=== PATIENT | female | born 1950 ===

== ENCOUNTER 2018-07-15 10:24 | Emergency (ER) | payer MEDICAID ==
[2018-07-15 10:29] VITALS: BP 151/75; PULSE 104; TEMP 97
[2018-07-15 10:30] VITALS: BMI 23.2
[2018-07-15 10:45] VITALS: O2SAT 98
[2018-07-15] MEDS ORDERED: Albuterol-Ipratrop 3 mg / 0.5 (3 ml) UD INH STA ×3 (11:05→14:29)
--- NOTE | 2018-07-15 11:06 | ED PDOC ---
HPI: SOB/CHF/COPD Time Seen by Provider: 07/15/18 10:46 Chief Complaint (Nursing): Shortness Of Breath Chief Complaint (Provider): Shortness Of Breath History Per: Family (daughter) History/Exam Limitations: language barrier (azeri) Onset/Duration Of Symptoms: Days (x3) Current Symptoms Are (Timing): Still Present Additional Complaint(s): 68 year old female with medical history of asthma, arrives to the emergency department with daughter at bedside, for an evaluation of shortness of breath associated with cough and wheezing for the past 3 days. She denies chest pain, fever, or chills. Patient has been using her inhaler pumps and nebulizers at home with no alleviation. Recently, patient changed primary doctors (previous one retired) and was worked up for asthma with labs, however, did not receive nebulizer treatment at the time due to broken machine. Past Medical History Reviewed: Historical Data, Nursing Documentation, Vital Signs Vital Signs: Last Vital Signs Temp 97 F L 07/15/18 10:28 Pulse 104 H 07/15/18 10:28 Resp BP 151/75 H 07/15/18 10:28 Pulse Ox 98 07/15/18 10:43 Primary Care Provider: FAMILY PROVIDER,NO - Medical History PMH: Arthritis, Asthma, HTN - Family History Family History: States: Unknown Family Hx - Social History Current smoker - smoking cessation education provided: No - Immunization History Hx Tetanus Toxoid Vaccination: No - Home Medications Home Medications: Ambulatory Orders Medication Instructions Recorded Prednisone 50 mg PO DAILY #4 tab 07/15/18 - Allergies Allergies/Adverse Reactions: Allergies Allergy/AdvReac Type Severity Reaction Status Date / Time No Known Allergies Allergy Verified 07/15/18 10:42 Review of Systems ROS Statement: Except As Marked, All Systems Reviewed And Found Negative Constitutional: Negative for: Fever, Chills Cardiovascular: Negative for: Chest Pain Respiratory: Positive for: Cough, Shortness of Breath, Wheezing Physical Exam - Reviewed Nursing Documentation Reviewed: Yes Vital Signs Reviewed: Yes - Physical Exam Appears: Positive for: Non-toxic, No Acute Distress Head Exam: Positive for: ATRAUMATIC, NORMAL INSPECTION, NORMOCEPHALIC Skin: Positive for: Normal Color Eye Exam: Positive for: Normal appearance, EOMI, PERRL ENT: Positive for: Normal ENT Inspection. Negative for: Pharyngeal Erythema Neck: Positive for: Normal Cardiovascular/Chest: Positive for: Regular Rate, Rhythm Respiratory: Positive for: Wheezing (expiratory bilaterally). Negative for: Respiratory Distress Extremity: Positive for: Normal ROM (upper/lower). Negative for: Pedal Edema Neurological/Psych: Positive for: Awake, Alert, Normal Tone, Oriented, Other (speaking full sentences with clear speech) - Laboratory Results Result Diagrams: 07/15/18 12:05 07/15/18 12:05 - ECG O2 Sat by Pulse Oximetry: 98 (RA) Pulse Ox Interpretation: Normal Medical Decision Making Medical Decision Making: Time: 1102 Initial Plan: * EKG * Labs * CXR * Duoneb INH * Solu-medrol IVP * Blood culture 14:00 Pt feels better, + wheezing, additional nebulizer ordered. 15:30 Wheezing resolved. Scribe Attestation: Documented by Lacy Wheatley, acting as a scribe for Zahra Seals MD. Provider Scribe Attestation: All medical record entries made by the Scribe were at my direction and personally dictated by me. I have reviewed the chart and agree that the record accurately reflects my personal performance of the history, physical exam, medical decision making, and the department course for this patient. I have also personally directed, reviewed, and agree with the discharge instructions and disposition. Disposition - Clinical Impression Clinical Impression: Asthma exacerbation - Disposition Referrals: Jr Mcdonald MD [Family Provider] - Disposition: Routine/Home Disposition Time: 15:37 Condition: IMPROVED Prescriptions: Prednisone 50 mg PO DAILY #4 tab Instructions: Asthma in Adults Forms: [facility] (Icelandic) Print Language: ITALIAN
[2018-07-15] MEDS ORDERED: Albuterol-Ipratrop 3 mg / 0.5 (3 ml) UD ONE (11:40)
[2018-07-15 12:12] LABS: BASO # 0.1 K/uL (0.0-0.2); BASO % 1.2 % (0.0-2.0); EOS # 0.6 K/uL (0.0-0.7); LYMPH # 1.1 K/uL (1.0-4.3); LYMPH % 14.6 % (20.0-40.0); MEAN CELL VOLUME 90.1 fl (81.0-99.0); MEAN CORPUSCULAR HEMOGLOBIN 30.8 pg (27.0-31.0); MEAN CORPUSCULAR HGB CONC 34.2 g/dL (33.0-37.0); MEAN PLATELET VOLUME 7.7 fl (7.2-11.7); MONO # 0.5 K/uL (0.0-0.8); NEUT # 5.3 K/uL (1.8-7.0); NEUT % 70.2 % (50.0-75.0); RBC 4.22 Mil/uL (3.80-5.20); RED CELL DISTRIBUTION WIDTH 13.8 % (11.5-14.5); WHITE BLOOD COUNT 7.6 K/uL (4.8-10.8)
[2018-07-15 12:24] LABS: ALB/GLOB RATIO 1.1 (1.0-2.1); ALBUMIN 4.1 g/dL (3.5-5.0); ALT/SGPT 14 U/L (9-52); AST/SGOT 22 U/L (14-36); BLOOD UREA NITROGEN 16 mg/dl (7-17); CALCIUM 9.6 mg/dL (8.4-10.2); GFR NON-AFRICAN AMERICAN > 60
--- NOTE | 2018-07-15 16:16 | RAD ---
Date of service: 07/15/2018 HISTORY: SOB COMPARISON: No prior. TECHNIQUE: 1 view obtained. FINDINGS: LUNGS: No active pulmonary disease. PLEURA: No significant pleural effusion identified, no pneumothorax apparent. CARDIOVASCULAR: No aortic atherosclerotic calcification present. Normal cardiac size. No pulmonary vascular congestion. OSSEOUS STRUCTURES: No significant abnormalities. VISUALIZED UPPER ABDOMEN: Normal. OTHER FINDINGS: None. IMPRESSION: No active disease.
--- NOTE | 2018-07-15 23:26 | CARD ---
APPROVED REPORT Date of service: 07/15/2018 EKG Measurement Heart [id number] <Conclusion> Normal sinus rhythm Normal ECG
== END 2018-07-15 16:02 | disposition home or self-care (01) ==
LOC: H.ER 10:24
DX: J45.901 Unspecified asthma with (acute) exacerbation (principal); I10 Essential (primary) hypertension; J44.9 Chronic obstructive pulmonary disease, unspecified
CPT/HCPCS: 71045; 80053; 85025; 87040; 93005; 96374; 99284; J2930